=== PATIENT | female | born 1945 | race Caucasian/White ===

== ENCOUNTER 2016-09-28 16:28 | Emergency (ER) | payer MEDICARE, OTHER ==
[2014-10-01 09:37] VITALS: BMI 34.8
[~2016-09-28 16:28] MED LIST: ACIPHEX20 MG PO; ACTOS45 MG PO; CHLORASEPTIC177 ML MM; CLARITIN 10 MG10 MG PO; COLACE100 MG PO; COUMADIN5 MG PO; DEMEROL50 MG PO; DIABETA5 MG PO; GLUCOPHAGE1000 MG PO; INVOKANA300 MG PO; LANTUS INSULIN10 ML INJ; LISINOPRIL10 MG PO; MIRALAX17 GM PO; MOBIC7.5 MG PO; MS CONTIN30 MG PO; MULTIPLE VITAMI1 TA1 PO; PHENERGAN6.25 MG/5 PO; PREMARIN0.3 MG PO; PROZAC20 MG PO; SIMETHICON40 MG/0.6 PO; SINGULAIR10 MG PO; SYMBICORT INH; TAMIFLU75 MG PO; VITAMIN E1000 UNIT PO; ZANAFLEX4 MG PO; ZOCOR20 MG PO; ZOFRAN4 MG PO; [UNRECOGNIZED DRUG - OTHER] PO; [UNRECOGNIZED DRUG - OTHER] PO
[2016-09-28 17:36] LABS: BASOPHILS 0.2 % (0.0-2.0); HEMATOCRIT 40.6 % (36.0-48.0); HEMOGLOBIN 13.1 g/dL (12-16); IMMATURE GRANULOCYTES 0.2 % (0-5); LYMPHOCYTES 34.5 % (15-50); MCH 30.2 pg (26.0-34.0); MCHC 32.3 g/dL (31.0-37.0); MCV 93.5 fL (80.0-100.0); MEAN PLATELET VOLUME 11.5 fL (7.4-10.4); MONOCYTES 7.2 % (2-11); NEUTROPHILS 56.9 % (40-80); PLATELET COUNT 212 10x3/uL (130-400); RBC 4.34 10x6/uL (4.00-5.40); RDW 12.9 % (11.5-14.5)
[2016-09-28 17:50] LABS: ALBUMIN 3.6 g/dL (3.4-5.0); ANION GAP 12.7 mmol/L (8-16); BILIRUBIN - TOTAL 0.48 mg/dL (0.2-1.3); CALCIUM 9.4 mg/dL (8.5-10.1); CARBON DIOXIDE 27.3 mmol/L (21.0-32.0); CREATININE - SERUM 1.2 mg/dL (0.6-1.3); URIC ACID 4.5 mg/dL (2.6-7.2)
== END 2016-09-28 20:15 | disposition home or self-care (01) ==
LOC: D.ER 16:28
PROVIDERS: Emergency Medicine
DX: M79.674 Pain in right toe(s) (principal); Z86.73 Personal history of transient ischemic attack (TIA), and cerebral infarction without residual deficits; J45.909 Unspecified asthma, uncomplicated; E11.9 Type 2 diabetes mellitus without complications

== ENCOUNTER → 2016-11-04 18:41 | Outpatient (CLI) | payer MEDICARE, OTHER ==
[2014-10-01 09:37] VITALS: BMI 34.8
== END | disposition home or self-care (01) ==
LOC: D.MAMMO 10:30
DX: Z12.31 Encounter for screening mammogram for malignant neoplasm of breast (principal)

== ENCOUNTER 2017-01-17 16:01 | Emergency (ER) | payer MEDICARE, OTHER ==
[2014-10-01 09:37] VITALS: BMI 34.8
== END 2017-01-17 19:45 | disposition home or self-care (01) ==
LOC: D.ER 16:01
DX: S50.812A Abrasion of left forearm, initial encounter (principal); W01.0XXA Fall on same level from slipping, tripping and stumbling without subsequent striking against object, initial encounter; Y93.89 Activity, other specified; Y92.019 Unspecified place in single-family (private) house as the place of occurrence of the external cause; S70.01XA Contusion of right hip, initial encounter; S00.03XA Contusion of scalp, initial encounter; J45.909 Unspecified asthma, uncomplicated; Z86.73 Personal history of transient ischemic attack (TIA), and cerebral infarction without residual deficits; E11.9 Type 2 diabetes mellitus without complications

== ENCOUNTER 2017-04-23 05:09 | Day surgery (SDC) | payer MEDICARE, OTHER ==
[2017-04-22 10:44] LABS: HEMATOCRIT 40.9 % (36.0-48.0); MCH 31.3 pg (26.0-34.0); MCHC 34.2 g/dL (31.0-37.0); MCV 91.5 fL (80.0-100.0); MEAN PLATELET VOLUME 11.1 fL (7.4-10.4); RBC 4.47 10x6/uL (4.00-5.40); RDW 13.2 % (11.5-14.5); WBC 8.7 10x3/uL (4.8-10.8)
[2017-04-22 10:58] LABS: CALCIUM 9.1 mg/dL (8.5-10.1); CARBON DIOXIDE 22.7 mmol/L (21.0-32.0); CREATININE - SERUM 1.1 mg/dL (0.6-1.3); POTASSIUM - SERUM 4.7 mmol/L (3.5-5.1)
[~2017-04-23] VITALS: Ht 168.9 cm; Wt 106.8 kg
--- NOTE | ~2017-04-23 | OP ---
PATIENT NAME: KARYN PUENTES MEDICAL RECORD: [id number] :43 LOCATION:D.OPS ADMISSION DATE: SURGEON: CARLIN FRANCO DPM DATE OF OPERATION: 04/23/2017 PREOPERATIVE DIAGNOSES: 1. Arthritis, right hallux interphalangeal joint. 2. Hammertoe deformities, right 2, 3, 4 and 5. POSTOPERATIVE DIAGNOSES: 1. Arthritis, right hallux interphalangeal joint. 2. Hammertoe deformities, right 2, 3, 4 and 5. PROCEDURES: 1. Right hallux IPJ fusion. 2. Right second digit flexor tenotomy. 3. Right third digit flexor tenotomy. 4. Right fourth digit flexor tenotomy. 5. Right fifth arthroplasty. ANESTHESIA: Local with IV sedation utilizing lidocaine and Marcaine plain around the first through fifth digits, approximately 15 cc total were used. HEMOSTASIS: Right thigh tourniquet at 350 mmHg. PREOPERATIVE DETAILS: The patient was taken to the OR, placed on the operating table in supine position. This was followed by induction of general anesthesia and infiltration of local anesthetic. The right extremity was then prepped and draped in usual aseptic technique followed by exsanguination and inflation of tourniquet. PROCEDURE NUMBER ONE: Right hallux IPJ fusion. A 15-blade was used to create a transverse incision overlying the dorsal IPJ. The incision was deepened down through subcutaneous tissue. The extensor longus tendon was transected in a transverse fashion exposing the IPJ. The IPJ was freed and a sagittal saw was used to resect the joint. The joint was then temporarily fixated with K-wire running from distal hallux proximal to the subchondral bone of the proximal phalanx. At this time, overdrill was used. A headless screw was then placed across the fusion site noting excellent compression. C-arm was used to verify good placement of the screw. The wound was flushed. The temporary K-wire was removed. The distal incision was closed in a simple interrupted technique with 4-0 Rapide. The dorsal incision was closed with 4-0 Rapide in a subcuticular technique. PROCEDURE NUMBER TWO: Flexor tenotomy, right second digit. A 15-blade was used to create a small stab incision in the base of the plantar aspect of the second digit, right foot. The incision was deepened down to the flexor tendon, which was incised, noting excellent reduction of the contracture of the tendon. The wound was flushed and closed with Steri-Strips. PROCEDURE NUMBER THREE: Procedure was performed as described in number 2 without variation and no complication. PROCEDURE NUMBER FOUR: Flexor tenotomy, right fourth digit. Procedure was performed as described in number 2 without variation and no complication. OPERATIVE REPORT [id number] KARYN PUENTES PROCEDURE NUMBER FIVE: Right fifth digit arthroplasty. A 15-blade was used to create a 1.5 cm linear incision over dorsal aspect of the PIPJ of the right 5th digit. The incision was deepened down through subcutaneous tissue to the extensor longus tendon, which was transected in a transverse fashion. The head of the proximal phalanx was then exposed and delivered. Sagittal saw was used to resect the head of the proximal phalanx. The wound was flushed. Extensor longus tendon was repaired with 4-0 Rapide. The subcutaneous tissue was reapproximated with 4-0 Rapide and the skin was closed with 4-0 Rapide in a subcuticular technique. Adaptic, 4 x 4 and Conform were used to dress all wounds followed by a modified Gutierrez compression dressing. Tourniquet was deflated. POSTOPERATIVE DETAILS: The patient tolerated the procedure well and left the OR with vital signs stable and vascular status at preoperative levels. The patient was transported to recovery per anesthesia in stable condition. TRANSINT:[id number] Voice Confirmation ID: [id number] DOCUMENT ID: [id number] CARLIN FRANCO DPM CC: [id number] DICTATION DATE: 04/23/17818 JBOSS DEVELOPER: 04/23/17 1251 [facility] 04/23/17 [place] [id number] [place] [id number]
[~2017-04-23 05:09] MED LIST changes: +ARICEPT10 MG PO; +CO Q-10200 MG PO; +FISH OIL 1,2001 CAP PO; +GLUCOTROL 5 MG T5 MG PO; +JARDIANCE10 MG PO; +LIPITOR40 MG PO; -LISINOPRIL10 MG PO; +NEURONTIN 300300 MG PO; +NORVASC5 MG PO; +OMEPRAZOLE40 MG PO; +OXYBUTYNIN CHLOR5 MG PO; +PRINIVIL20 MG PO; +REQUIP1 MG PO; +VITAMIN B COMPL1 TAB PO; +VITAMIN D31000 UNIT PO; -VITAMIN E1000 UNIT PO; +VITAMIN E400 UNI2 PO
[2017-04-23 06:19] VITALS: BP 146/62; Ht 168.9 cm; Wt 106.8 kg
== END 2017-04-23 10:50 | disposition home or self-care (01) ==
LOC: D.OPS 05:09 → D.PAN 07:00 → D.OPS 10:50
PROVIDERS: Anesthesiology
DX: M13.871 Other specified arthritis, right ankle and foot (principal); M20.41 Other hammer toe(s) (acquired), right foot; Z01.812 Encounter for preprocedural laboratory examination

== ENCOUNTER 2017-08-24 21:40 | Emergency (ER) | payer MEDICARE, OTHER ==
[2017-04-23 06:19] VITALS: BMI 37.4
== END 2017-08-24 23:15 | disposition home or self-care (01) ==
LOC: D.ER 21:40
DX: S63.501A Unspecified sprain of right wrist, initial encounter (principal); W01.0XXA Fall on same level from slipping, tripping and stumbling without subsequent striking against object, initial encounter; Y93.89 Activity, other specified; Y92.019 Unspecified place in single-family (private) house as the place of occurrence of the external cause

== ENCOUNTER 2017-08-30 09:22 | Emergency (ER) | payer MEDICARE, OTHER ==
[2017-04-23 06:19] VITALS: BMI 37.4
[2017-08-30 10:30] LABS: ALBUMIN 3.5 g/dL (3.4-5.0); ALKALINE PHOSPHATASE 106 U/L (46-116); ALT (SGPT) 36 U/L (10-68); BILIRUBIN - TOTAL 0.57 mg/dL (0.2-1.3); CALC OSMOLALITY 285 mosm/kg (275-300); CALCIUM 9.4 mg/dL (8.5-10.1); CARBON DIOXIDE 25.3 mmol/L (21.0-32.0); CHLORIDE - SERUM 104 mmol/L (98-107); CREATININE - SERUM 1.2 mg/dL (0.6-1.3); GLUCOSE 144 mg/dL (74-106); POTASSIUM - SERUM 4.1 mmol/L (3.5-5.1); PROTEIN - SERUM 6.9 g/dL (6.4-8.2); SODIUM 139 mmol/L (136-145); UREA NITROGEN 26 mg/dL (7-18); eGFR NON AFRICAN AMERICAN 47 mL/min (90-120)
[2017-08-30 10:34] LABS: CREATINE KINASE 68 UL (21-215); MAGNESIUM - SERUM 1.6 mg/dL (1.8-2.4)
[2017-08-30 10:35] LABS: TROPONIN-I < 0.017 ng/mL (0.000-0.060)
[2017-08-30 10:40] LABS: BASOPHILS 0.4 % (0-2); EOSINOPHILS 2.5 % (0-7); HEMATOCRIT 39.3 % (36.0-48.0); HEMOGLOBIN 13.2 g/dL (12-16); IMMATURE GRANULOCYTES 0.3 % (0-5); LYMPHOCYTES 27.3 % (15-50); MCH 31.3 pg (26.0-34.0); MCHC 33.6 g/dL (31.0-37.0); MCV 93.1 fL (80.0-100.0); MEAN PLATELET VOLUME 11.4 fL (7.4-10.4); MONOCYTES 7.8 % (2-11); NEUTROPHILS 61.7 % (40-80); PLATELET COUNT 225 10x3/uL (130-400); RBC 4.22 10x6/uL (4.00-5.40); RDW 13.2 % (11.5-14.5); WBC 9.7 10x3/uL (4.8-10.8)
== END 2017-08-30 13:03 | disposition home or self-care (01) ==
LOC: D.ER 09:22
PROVIDERS: Emergency Medicine
DX: J20.9 Acute bronchitis, unspecified (principal); J01.90 Acute sinusitis, unspecified

== ENCOUNTER 2017-11-11 12:10 | Outpatient (CLI) | payer MEDICARE, OTHER ==
[2017-04-23 06:19] VITALS: BMI 37.4
--- NOTE | ~2017-11-11 | OP ---
PATIENT NAME: KARYN PUENTES MEDICAL RECORD: [id number] :43 LOCATION:D.CAT ADMISSION DATE: SURGEON: GONZALO VEGAS MD DATE OF OPERATION: 11/11/2017 PROCEDURES: 1. Left heart catheterization. 2. Selective coronary angiography. 3. Left ventriculogram. 4. Intravascular ultrasound. INDICATION: Angina and coronary artery disease. PROCEDURE IN DETAIL: After informed consent was obtained and after detailed explanation of risks, benefits as well as alternative therapies, the patient elected to proceed with angiogram and heart catheterization. The right femoral area was prepped and draped in normal sterile fashion. Right femoral artery was cannulated via modified Seldinger technique with placement of 5-Tajik sheath. All catheters exchanged through this sheath. FINDINGS: The left ventriculogram was performed in standard 30-degree PEREZ view, reveals good cardiac wall motion throughout all segments. Overall ejection fraction estimated at 60%. SELECTIVE CORONARY ANGIOGRAPHY: 1. Left main is with no significant angiographic disease. 2. Left anterior descending has mild to moderate irregularities, but intravascular ultrasound reveals nothing greater than 50% to 60%. 3. The left circumflex has moderate irregularities, but no flow-limiting stenosis. 4. The right coronary has moderate irregularities, but no flow-limiting stenosis. OVERALL IMPRESSION: Chest pain, no hemodynamically significant coronary artery disease. Chest pain is noncardiac in etiology. TRANSINT:[id number] Voice Confirmation ID: [id number] DOCUMENT ID: [id number] GONZALO VEGAS MD at 1202 CC: [id number] DICTATION DATE: 11/11/17 1643 DOCTOR OF DENTAL SURGERY: 11/11/17 1755 DEP CLI 11/11/17 [facility] [address] [place] [address]
--- NOTE | ~2017-11-11 | CN ---
PATIENT NAME:KARYN PUENTES MEDICAL RECORD: [id number] : 41 LOCATION:D.JEANNINE ADMIT DATE: ACCOUNT: [id number] CONSULTING PHYSICIAN: GONZALO VEGAS MD REFERRING PHYSICIAN: NICKOLAS BAR MD DATE OF CONSULTATION: 11/11/2017 Cardiology Consultation ADMITTING DIAGNOSES: 1. Chest pain compatible with angina. 2. Hypertension. 3. Hyperlipidemia. 4. Gastroesophageal reflux disease. 5. Diabetes. HISTORY OF PRESENT ILLNESS: This is a 71-year-old female with no previous cardiac history who presents with 2 days of increasing episodes of chest pain, chest discomfort compatible with angina. She has a history of GERD she has developed on her Prilosec and she continues to have the episodes of chest discomfort, it was associated with nausea and vomiting earlier today. Her EKG is with no changes. She continues to have the episodes of chest pain. Her troponin is normal. REVIEW OF SYSTEMS: The patient reports easy bruising but reports no swollen glands. The patient reports no fever, no night sweats, no significant weight gain, no significant weight loss. No significant exercise tolerance. The patient reports no dry eyes, no irritation, no vision change. Patient reports no difficulty hearing and no ear pain. Patient reports no frequent nose bleeds or nose and sinus problems. Patient reports on arm pain on exertion. No shortness of breath while lying down. No history of heart murmur. Patient reports no cough, no wheezing or coughing up blood. Patient reports no abdominal pain, no vomiting. Normal appetite. No diarrhea and not vomiting blood. No nausea and no constipation. Patient reports no incontinence. No difficulty urinating. No hematuria. No increased frequency. Patient reports no muscle aches. No weakness, no arthralgias, no back pain. No swelling of the extremities. Patient reports no abnormal mole, no jaundice, no rashes. Reports no loss of consciousness. No weakness and no numbness. No seizures, dizziness, or headaches. The patient reports no depression, no sleep disturbance, feeling safe in a relationship and no alcohol abuse. Patient reports on fatigue. Reports no runny nose or sinus pressure. No itching, no hives, and no frequent sneezing. PHYSICAL EXAMINATION: GENERAL APPEARANCE: Well-nourished, well-developed, appears stated age. Level of distress, comfortable. PSYCHIATRIC: Mental status, alert, normal affect. Orientation, oriented to time, place and person. EYES: Lids and conjunctiva, noninjected. No discharge, no pallor. ENT: Lips, teeth, gums, normal dentition. Oropharynx, no cyanosis, no pallor. NECK: Carotid arteries, bilateral normal upstroke, no bruits, no thrills. JUGULAR VEINS: No jugular venous pressure or distention. CERVICAL LYMPH NODES: Nontender, nonenlarged. THYROID: Not enlarged. Nontender. No nodules. LUNGS: Respiratory effort, unlabored. CONSULT REPORT [id number] DHAVALKARYN CHEST: Normal curvature. No thoracic deformity. No chest wall tenderness. Percussion, resonant. Auscultation, clear. No wheezes, no rales, no rhonchi. CARDIOVASCULAR: Precordial exam, nondisplaced. No heaves or pericardial thrills. Rate and rhythm, regular. Heart sounds, normal S1, normal S2. No S3, no gallop, no rub. Systolic murmur, not heard. Diastolic murmur, not heard. EXTREMITIES: No cyanosis, no edema. Peripheral pulses, full and equal in all extremities, except as noted. No bruits appreciated. ABDOMEN: Soft, nondistended. Normal aorta. No bruit. Nontender. No masses. Liver, nontender, no hepatomegaly. Spleen, nontender, no splenomegaly. MUSCULOSKELETAL: No joint tenderness. No joint swelling. No erythema. NEUROLOGICAL: Normal gait, normal strength, normal tone. SKIN: Warm and dry. OVERALL IMPRESSION: Chest pain in a continued fashion, very well may be anginal in etiology. We will proceed with coronary angiography due to the continued pain. Further care depends upon the findings of the angiography. TRANSINT:[id number] Voice Confirmation ID: [id number] DOCUMENT ID: [id number] GONZALO VEGAS MD at 1202 CC: [id number] DICTATION DATE: 11/11/17 1641 [employer] REPAIRER: 11/11/17 1730 DEP CLI 11/11/17 [facility] [address] [place] [address]
--- NOTE | ~2017-11-11 | HEMODYNAMI ---
PATIENT:KARYN PUENTES MEDICAL RECORD: [id number] : 43 LOCATION:DYULIA ADMISSION DATE: 11/11/17 Generatedon:11/11/201716:42 Patient name: KARYN PUENTES Patient #: [id number] SSN: : 1945 Date of study: 11/11/2017 Page: Of Hemodynamic Procedure Report Patient Data Patient Demographics Procedure consent was obtained First Name: KARYN Gender: Female Last Name: DHAVAL : 1945 [facility] Initial: DELFINO Age: 71 year(s) Patient #: [id number] Race: Unknown Additional ID: [id number] Contact details Address: [place] [address] State: [place] City: [place] Zip code: [address] Admission Admission Data Admission Date: 11/11/2017 Admission Time: 12:10 Arrival Date: 11/11/2017 Arrival Time: 12:10 Admit Source: Emergency Insurance Payor: Medicare department Lab Results Lab Result Date: 11/11/2017 Lab Result Time: 0:00 Biochemistry Name Units Result Min Max BUN mg/dl 28 --(----)-* 7 18 Creatinine mg/dl 1.1 --(--*-)-- 0.6 1.3 CBC Name Units Result Min Max Hemoglobin g/dl 13.9 --(*---)-- 13.5 17.5 Procedure Procedure Types Cath Procedure Diagnostic Procedure [facility] w/Coronaries FFR/IVUS Intra-Coronary IVUS Initial Sedation Charges Procedure Description Procedure Date Procedure Date: 11/11/2017 Procedure Start Time: 16:26 Procedure End Time: 16:38 Procedure Staff Name Function King Burgos MD Performing Physician Yaima Alejandor RT Monitor Frantz Herron RN Nurse Natasha Morales RT Scrub Procedure Data Cath Procedure Fluoroscopy Diagnostic fluoroscopy Total fluoroscopy Time: 2 time: 2 min min Diagnostic fluoroscopy Total fluoroscopy dose: 429 dose: 429 mGy mGy Contrast Material Contrast Material Type Amount (ml) Isovue 300 54 Entry Location Entry Primary Successful Side Size Upsize Upsize Entry Closure Succes sful Closure Location (Fr) 1 (Fr) 2 (Fr) Remarks Device Remarks Femoral Right 5 Fr 6 Fr Exoseal artery Short Estimated blood loss: 5 ml Diagnostic catheters Device Type Used For End Catheter Placement MULTIPACK Pigtail 5 Fr LV Angiography catheter MULTIPACK JL 4.0 5Fr Left Coronary catheter Angiography MULTIPACK 3DRC 5Fr Right Coronary catheter Angiography Procedure Complications No complications Procedure Medications Medication Administration Route Dosage Oxygen NC 2 l/min 0.9% NaCl I.V. 100 ml/hr Heparin Flush Bag added to field 2 bags (1000units/500ml NS) Fentanyl I.V. 50 mcg Fentanyl I.V. 50 mcg Fentanyl I.V. 50 mcg Fentanyl I.V. 50 mcg Hemodynamics Rest HGB: 13.9 (g/dl) Heart Rate: 70 (bpm) Pressure Samples Time Site Value (mmHg) Purpose Heart Use Rate(bpm) 16:27 LV 114/6,8 Snapshot 85 Snapshots Pre Cath Intra NCS Post Cath Vital Signs Time Heart Resp SPO2 etCO2 NIBP (mmHg) Rhythm Pain Sedation Rate (ipm) (%) (mmHg) Status Level (bpm) 16:09:08 71 16 96 0 149/74(123) NSR 0 (11) 10(A) , No pain 16:13:30 69 16 93 0 151/69(105) NSR 0 (11) 10(A) , No pain 16:17:48 73 16 98 0 151/69(116) NSR 0 (11) 10(A) , No pain 16:22:16 76 16 98 0 156/70(122) NSR 0 (11) 10(A) , No pain 16:26:38 98 16 98 0 148/70(120) NSR 0 (11) 10(A) , No pain 16:31:54 95 15 98 0 184/83(129) NSR 0 (11) 10(A) , No pain 16:41:54 93 19 98 0 161/86(118) NSR 0 (11) 10(A) , No pain Medications Time Medication Route Dose Verified Delivered Reason Notes Effec tiveness by by 16:16:30 Oxygen NC 2 King Landry Per l/min Aubrey Herron RN physician 16:16:39 0.9% NaCl I.V. 100 King Landry Per ml/hr Aubrey Herron RN physician 16:16:49 Heparin Flush added 2 King Landry used for Bag to bags Aubrey Herron RN procedure (1000units/500ml field NS) 16:24:26 Fentanyl I.V. 50 King Landry for oneida Herron RN sedation 16:25:46 Fentanyl I.V. 50 King Landry for oneida Herron RN sedation 16:27:04 Fentanyl I.V. 50 King Landry for oneida Herron RN sedation 16:31:30 Fentanyl I.V. 50 King Landry for oneida Herron RN sedation Procedure Log Time Note 15:49:10 Frantz Herron RN sent for patient. Start room use. 15:49:11 Time tracking: Regular hours 15:49:16 Plan of Care:Hemodynamics will remain stable., Cardiac rhythm will remain stable., Comfort level will be maintained., Respiratory function will remain adequate., Patient/ family verbilizes understanding of procedure., Procedure tolerated without complication., Recovers from procedure without complications.. 15:49:52 Diagnostic Cath Status : Emergency 15:49:58 Admit Source: Emergency department 15:50:07 Arrival Date: 11/11/2017 12:10:00 PM 15:50:20 Insurance Payor : Medicare 15:50:37 Lab Result : Hemoglobin 13.9 g/dl 15:50:37 Lab Result : Creatinine 1.1 mg/dl 15:50:37 Lab Result : BUN 28 mg/dl 16:02:11 Patient received from ED to CCL 2 Alert and oriented. Tansferred to table in Supine position. 16:02:12 Warm blankets applied, and ck hugger turned on for patient comfort. 16:02:12 Correct patient and procedure confirmed by team. 16:02:14 Signed procedure consent form obtained from patient. 16:02:15 ECG and BP/O2 sat monitors applied to patient. 16:02:15 Full Disclosure recording started 16:07:55 Vital chart was started 16:11:36 Baseline sample Acquired. 16:11:43 Rhythm: sinus rhythm 16:11:49 H&P Date Dictated: 11/11/2017 New H&P dictated by physician.. 16:11:50 Pre-procedure instructions explained to patient. 16:11:51 Pre-op teaching completed and patient verbalized understanding. 16:11:53 Family in waiting room. 16:11:54 Patient NPO since Midnight. 16:11:58 Is the patient allergic to Iodine/contrast media? No. 16:11:59 Was the patient premedicated? No 16:12:01 Is patient on blood thinner?Yes 16:12:05 ACC The patient was administered the following blood thiners within the last 24 hours: ACCPlavix 16:12:08 Patient diabetic? Yes. 16:12:09 If diabetic: On Metformin? Yes 16:12:12 If on Metformin: Last Dose? 11/11/2017 16:12:15 Previous problem with sedation/anesthesia? No ? 16:12:16 Snore? Yes 16:12:17 Sleep apnea? No 16:12:18 Deviated septum? No 16:12:19 Opens mouth fully? Yes 16:12:19 Sticks out tongue? Yes 16:12:21 Airway obstruction? No ? 16:12:29 Dentures? No ? 16:12:32 Pre procedure: right dorsailis pedis pulse 1+ Palpable, but thready & weak; easily obliterated 16:12:37 Pre procedure: left dorsailis pedis pulse 1+ Palpable, but thready & weak; easily obliterated 16:12:38 Patient pain scale 0/10 ?. 16:12:48 IV patent on arrival in right wrist with 0.9% NaCl at [facility]. 16:12:50 Lab results completed and on chart. 16:12:54 Right groin area was prepped with chlora-prep and draped in sterile fashion 16:12:55 Alarms reviewed by R. N. 16:12:55 Sharps counted by scrub and verified by R.N. 16:15:30 Physician paged 16:16:30 Oxygen 2 l/min NC was administered by Frantz Herron RN; Per physician; 16:16:39 0.9% NaCl 100 ml/hr I.V. was administered by Frantz Herron RN; Per physician; 16:16:49 Heparin Flush Bag (1000units/500ml NS) 2 bags added to field was administered by Frantz Herron RN; used for procedure; 16:23:53 Physician arrived 16:23:53 --------ALL STOP TIME OUT------ 16:23:54 Final Timeout: patient, procedure, and site verified with staff and physician. All members of the team are in agreement. 16:23:57 Right groin site verified by team. 16:24:00 Physical assessment completed. ASA score P 2 - A patient with mild systemic disease as per King Burgos MD. 16:24:04 Sedation plan: IV Moderate Sedation Medication:Versed, Fentanyl 16:24:26 Fentanyl 50 mcg I.V. was administered by Frantz Herron RN; for sedation; 16:24:51 Use device set Femoral Dx 16:24:52 ACIST Syringe (56601) opened to sterile field. 16:24:52 Bag Decanter (2002S) opened to sterile field. 16:24:53 Medline Cath Pack ([id number]) opened to sterile field. 16:24:53 SHEATH 5FR Beatty (ULK287) opened to sterile field. 16:24:54 DIAGNOSTIC WIRE .035 260cm J wire (614450) opened to sterile field. 16:24:55 ACIST Hand Control (31156) opened to sterile field. 16:24:56 ACIST Manifold (17217) opened to sterile field. 16:24:56 DIAGNOSTIC Multipack 5Fr catheter set (KK9871) opened to sterile field. 16:25:46 Fentanyl 50 mcg I.V. was administered by Frantz Herron RN; for sedation; 16:26:20 Procedure started. 16:26:23 Local anesthetic to right femoral artery with Lidocaine 2% by King Burgos MD.INITIAL ACCESS ONLY 16:26:33 A 5 Fr sheath was inserted into the Right Femoral artery 16:27:04 Fentanyl 50 mcg I.V. was administered by Frantz Herron RN; for sedation; 16:27:05 A MULTIPACK Pigtail 5 Fr catheter was advanced over the wire and used for LV Angiography. 16:27:41 LV hemodynamics recorded. 16:27:42 LV gram done using PEREZ 16:27:45 Injector settings: Ml/sec: 5, Volume: 15, 16:27:50 EF : 60 % 16:27:55 Catheter removed. 16:27:59 A MULTIPACK JL 4.0 5Fr catheter was advanced over the wire and used for Left Coronary Angiography. 16:28:44 LCA angiography performed. 16:28:47 Injector settings: Ml/sec: 3, Volume: 6, 16:29:37 Catheter removed. 16:29:43 A MULTIPACK 3DRC 5Fr catheter was advanced over the wire and used for Right Coronary Angiography. 16:29:51 RCA angiography performed. 16:29:54 Injector settings: Ml/sec: 3, Volume: 6, 16:30:05 Catheter removed. 16:31:06 SHEATH 6FR Beatty (ASD497) opened to sterile field. 16:31:06 INFLATOR Merit BasixCompak (SC6536) opened to sterile field. 16:31:07 CHOICE PT Extra Support 182cm wire ([id number]) opened to sterile field. 16:31:08 Noxen [place] Eagleye IVUS Catheter (75677L) opened to sterile field. 16:31:28 Proceeding to intervention. 16:31:30 Fentanyl 50 mcg I.V. was administered by Frantz Herron RN; for sedation; 16:31:35 Sheath upsized to a 6 Fr Short. 16:31:59 GUIDE 6FR XBLAD 3.5 catheter ([id number]) opened to sterile field. 16:32:04 6 Fr xblad 3.5 guide catheter was inserted over the wire 16:32:11 choice pt wire advanced. 16:32:19 IVUS catheter advanced over wire. 16:35:56 IVUS pass to LAD lesion performed. 16:35:58 IVUS catheter removed over wire. 16:36:50 Wire removed. 16:36:51 Guide catheter removed. 16:37:06 EXOSEAL 5Fr (EX500) opened to sterile field. 16:37:23 Sheath removed intact; hemostasis achieved with Exoseal to the Right Femoral artery. 16:37:24 Procedure ended.(Physican Out) 16:37:34 Fluoroscopy time 02.00 minutes. 16:37:39 Fluoroscopy dose: 429 mGy 16:37:39 Flurop Dose total: 429 16:38:00 Contrast amount:Isovue 300 54ml. 16:38:02 Sharps counted by scrub and verified by R.N. 16:38:05 Insertion/operative site no bleeding no hematoma. 16:38:08 Post-op/insertion site Right Femoral artery dressed using a 4 x 4 and Tegaderm. 16:38:11 Post right femoral artery:stable 16:38:14 Post procedure rhythm: unchanged. 16:38:17 Estimated blood loss: 5 ml 16:38:18 Post procedure instruction explained to patient.Patient verbalizes understanding. 16:38:18 Patient needs reinforcement of post procedure teaching. 16:38:31 Procedure type changed to Cath procedure, Diagnostic procedure, LHC, LHC w/Coronaries, FFR/IVUS, Intra-Coronary IVUS Initial, Sedation Charges 16:38:32 Procedure and supply charges have been captured, reviewed, submitted and are correct. 16:38:36 Procedure Complication : No complications 16:38:39 Vital chart was stopped 16:38:39 See physician's report for complete and final results. 16:38:42 Report given to Pre/Post Procedure Room. 16:38:45 Patient transfered to Pre/Post Procedure Room with Stretcher. 16:38:46 Procedure ended. 16:38:46 Full Disclosure recording stopped 16:38:49 End room use (Document Last) Device Usage Item Name Manufacture Quantity Catalog Number Hospital Part Current Minim al Lot# / Charge Number Stock Stock Serial# Code ACIST Acist 1 66079 417662 [id number] [id number] 20 Syringe Medical (07881) Systems Inc Bag Microtek 1 2001S 676832 48234 274088 5 Decanter Medical Inc. () Medline Cardinal 1 [id number] 270681 01433 270716 5 Cath Pack Health ([id number]) SHEATH 5FR Terumo 1 KBA179 781360 029646 618760 40 Beatty (ZAW017) DIAGNOSTIC St Salvatore 1 054143 990310 998838 968925 30 WIRE .035 260cm J wire (084676) ACIST Hand Acist 1 89896 067567 555751 997179 5 Control Medical (53199) Systems Inc ACIST Acist 1 13088 960576 274848 105593 5 Manifold Medical (54714) Systems Inc DIAGNOSTIC Cardinal 1 [id number] 178450 20429 707271 30 Multipack Health 5Fr catheter set (AW0625) MULTIPACK Cardinal 1 175733 5 Pigtail 5 Health Fr catheter MULTIPACK Cardinal 1 120705 5 JL 4.0 5Fr Health catheter MULTIPACK Cardinal 1 792723 5 3DRC 5Fr Health catheter SHEATH 6FR Terumo 1 GBV207 424345 316815 005223 40 Beatty (GRT869) INFLATOR Merit 1 IH8746 706396 757820 348255 15 [facility] Medical BasixCompak (EL6246) CHOICE PT Griffin 1 [id number] 421402 990512 103032 5 Extra Scientific Support 182cm wire ([id number]) Noxen Noxen 1 [id number] 064939 307287 855536 8 [place] Eagleye IVUS Catheter (06067O) GUIDE 6FR Cardinal 1 [id number] 765312 067519 722562 10 XBLAD 3.5 Health catheter ([id number]) EXOSEAL 5Fr Cardinal 1 EX500 727513 048079 809922 10 (EX500) Health Signature Audit [place] Stage Time Signature Unsigned Intra-Procedure 11/11/2017 Yaima Alejandro 4:42:21 PM RT(R) Signatures Monitor : Yaima Alejandro RT Signature : Date : Time : [facility] [address] [facility] [place] [address]
[2017-11-11 12:30] LABS: BASOPHILS 0.2 % (0-2); EOSINOPHILS 0.4 % (0-7); HEMATOCRIT 40.5 % (36.0-48.0); HEMOGLOBIN 13.9 g/dL (12-16); IMMATURE GRANULOCYTES 0.2 % (0-5); LYMPHOCYTES 34.9 % (15-50); MCH 30.8 pg (26.0-34.0); MCHC 34.3 g/dL (31.0-37.0); MCV 89.8 fL (80.0-100.0); MEAN PLATELET VOLUME 11.1 fL (7.4-10.4); MONOCYTES 5.6 % (2-11); NEUTROPHILS 58.7 % (40-80); PLATELET COUNT 260 10x3/uL (130-400); RBC 4.51 10x6/uL (4.00-5.40); RDW 12.8 % (11.5-14.5); WBC 11.1 10x3/uL (4.8-10.8)
[2017-11-11 12:48] LABS: ALBUMIN 3.8 g/dL (3.4-5.0); ALKALINE PHOSPHATASE 92 U/L (46-116); ALT (SGPT) 34 U/L (10-68); BILIRUBIN - TOTAL 1.03 mg/dL (0.2-1.3); CALC OSMOLALITY 277 mosm/kg (275-300); CALCIUM 10.1 mg/dL (8.5-10.1); CARBON DIOXIDE 22.7 mmol/L (21.0-32.0); CHLORIDE - SERUM 100 mmol/L (98-107); CREATININE - SERUM 1.1 mg/dL (0.6-1.3); GLUCOSE 139 mg/dL (74-106); POTASSIUM - SERUM 4.4 mmol/L (3.5-5.1); PROTEIN - SERUM 7.4 g/dL (6.4-8.2); SODIUM 135 mmol/L (136-145); UREA NITROGEN 28 mg/dL (7-18); eGFR NON AFRICAN AMERICAN 51 mL/min (90-120)
[2017-11-11 12:59] LABS: CHOL - HDL RATIO 2.4 ratio (2.3-4.1); CHOLESTEROL, TOTAL 105 mg/dL (0-200); CKMB 1.8 U/L (0.0-3.6); CREATINE KINASE 75 UL (21-215); HDL CHOLESTEROL 43 mg/dL (32-96); LDL CHOLESTEROL 43 mg/dL (0-100); TRIGLYCERIDE 97 mg/dL (30-200)
[2017-11-11 13:00] LABS: TROPONIN-I < 0.017 ng/mL (0.000-0.060)
== END 2017-11-11 18:30 | disposition home or self-care (01) ==
LOC: D.ER 12:10 → D.CATH 12:10 → EDSTATUS 13:00 → D.CATH 18:30
PROVIDERS: Emergency Medicine
DX: I25.119 Atherosclerotic heart disease of native coronary artery with unspecified angina pectoris (principal); I10 Essential (primary) hypertension; E78.5 Hyperlipidemia, unspecified; E11.9 Type 2 diabetes mellitus without complications; K21.9 Gastro-esophageal reflux disease without esophagitis; Z01.812 Encounter for preprocedural laboratory examination

== ENCOUNTER 2018-07-06 20:12 | Inpatient (IN) | payer MEDICARE, OTHER ==
[~2018-07-06] VITALS: Ht 168.9 cm; Wt 90.7 kg
--- NOTE | ~2018-07-06 | MORECARE ---
CASE MANAGEMENT DISCHARGE SUMMARY PATIENT: KARYN PUENTES UNIT: [id number] ADM DATE: 07/06/18 AGE: 72 : 41 SEX: F ROOM/BED: D.2220 AUTHOR: PURNIMADOC PHYSICIAN: REFERRING PHYSICIAN: GEORGIE MICHELLE MD DATE OF SERVICE: 07/07/18 Discharge Plan Patient Name: KARYN PUENTES Facility: [facility]:[place] : 1945 Planned Disposition: Home Anticipated Discharge Date: Discharge Date: Expected LOS: Initial Reviewer: [email or web address] Initial Review Date: 07/07/2018 Generated: 07/07/18 5:02 pm Comments DCP- Discharge Planning Updated by [email or web address]: Amarilys Jackson on 07/07/18 2:[address] Patient Name: KARYN PUENTES Admission Status: ER Accout number: [id number] Admission Date: 07-06-2018 : 1945 Admission Diagnosis: Attending: EGORGIE MICHELLE Current LOS: 1 Anticipated DC Date: Planned Disposition: Home Primary Insurance: MEDICARE A & B Discharge Planning Comments: CM met with patient to assess discharge planning needs. Patient stated that she is independent with her care at home and plans to return there at discharge. She stated that her will be the one to take her home. She has a glucometer and a walker at home .She does not use any HH services and does not think she will need it when she is discharged. CM will continue to follow and assist with dc planning. Luggage Attendant: Amarilys Jackson DCPIA - Discharge Planning Initial Assessment Updated by [email or web address]: Amarilys Jackson on 07/07/18 3:53 pm * Is the patient Alert and Oriented? Yes * How many steps to enter\exit or inside your home? * PCP [facility] * [facility]acy [facility] [address] * Preadmission Environment Home with Family * ADLs Independent * Equipment Glucometer Rolling Walker * List name and contact numbers for known caregivers / representatives who currently or will assist patient after discharge: DIPAK () [phone] * Verbal permission to speak to the caregivers and representatives has been obtained from the patient. Yes * Community resources currently utilized None * Additional services required to return to the preadmission environment? No * Can the patient safely return to the preadmission environment? Yes * Has this patient been hospitalized within the prior 30 days at any hospital? No Last DP export: 07/07/18 2:53 p Patient Name: KARYN PUENTES Page 52815 at 1603 All edits/amendments must be made on the electronic document DICTATION DATE: 07/07/181601 PATTERN GRADER CUTTER: YORDAN 07/07/181601 RPT#: [id number] DC DATE: STATUS: ADM IN [facility] [address] [place] [address] END OF REPORT
--- NOTE | ~2018-07-06 | MORECARE ---
CASE MANAGEMENT DISCHARGE SUMMARY PATIENT: KARNY PUENTES UNIT: [id number] ADM DATE: 07/07/18 AGE: 72 : 43 SEX: F ROOM/BED: D.2220 AUTHOR: VAMSHI FELTON PHYSICIAN: REFERRING PHYSICIAN: GEORGIE MICHELLE MD DATE OF SERVICE: 07/10/18 Discharge Plan Patient Name: KARYN PUENTES Facility: [facility]:[place] : 1945 Planned Disposition: Home Anticipated Discharge Date: Discharge Date: Expected LOS: Initial Reviewer: [email or web address] Initial Review Date: 07/07/2018 Generated: 07/10/18 2:46 pm Comments DCP- Discharge Planning Updated by [email or web address]: Amarilys Jackson on 07/10/18 12:[address] Patient Name: KARYN PUENTES Encounter No: [id number] : 1945 Primary Insurance: MEDICARE A & B Anticipated DC Date: Planned Disposition: Home External Planned Provider: : DCP follow-up note: Patient and family in agreement with discharge plan. IMM served and explained. No changes to plan. Case management will follow and assist as needed. Amarilys Jackson DCP- Discharge Planning Updated by [email or web address]: Amarilys Jackson on 07/07/18 2:[address] Patient Name: KARYN PUENTES Admission Status: ER Accout number: [id number] Admission Date: 07-06-2018 : 1945 Admission Diagnosis: Attending: GEORGIE MICHELLE Current LOS: 1 Anticipated DC Date: Planned Disposition: Home Primary Insurance: MEDICARE A & B Discharge Planning Comments: CM met with patient to assess discharge planning needs. Patient stated that she is independent with her care at home and plans to return there at discharge. She stated that her will be the one to take her home. She has a glucometer and a walker at home .She does not use any HH services and does not think she will need it when she is discharged. CM will continue to follow and assist with dc planning. Induction Furnace Operator: Amarilys Jackson DCPIA - Discharge Planning Initial Assessment Updated by [email or web address]: Amarilys Jackson on 07/07/18 3:53 pm * Is the patient Alert and Oriented? Yes * How many steps to enter\exit or inside your home? * PCP [facility] * [facility]acy [facility] [address] * Preadmission Environment Home with Family * ADLs Independent * Equipment Glucometer Rolling Walker * List name and contact numbers for known caregivers / representatives who currently or will assist patient after discharge: DIPAK () [phone] * Verbal permission to speak to the caregivers and representatives has been obtained from the patient. Yes * Community resources currently utilized None * Additional services required to return to the preadmission environment? No * Can the patient safely return to the preadmission environment? Yes * Has this patient been hospitalized within the prior 30 days at any hospital? No Coverage Notice Reviewer: [email or web address] Mariel Jackson Notice Issued Date-Time: 07/10/2018 13:30 Notice Type: IM Discharge Notice Notice Delivered To: Patient Relationship to Patient: Cessation Systems Outreach Specialist Name: Delivery Method: HAND - Hand Delivered Valeria Days: Prior Verbal Notification: Recipient Understood Notice: Yes Recipient Signature: Yes Med Rec Note Co-signed by Attending: Coverage Notice Comment: Last DP export: 07/07/18 3:02 p Patient Name: KARYN PUENTES Page 20269 at 1346 All edits/amendments must be made on the electronic document DICTATION DATE: 07/10/18 1346 YARD ASSOCIATE: YORDAN 07/10/18 1346 RPT#: [id number] DC DATE: STATUS: ADM IN [facility] [address] [place] [address] END OF REPORT
--- NOTE | ~2018-07-06 | MORECARE ---
CASE MANAGEMENT DISCHARGE SUMMARY PATIENT: KARYN PUENTES UNIT: [id number] ADM DATE: 07/06/18 AGE: 72 : 43 SEX: F ROOM/BED: D.2220 AUTHOR: VAMSHI FELTON PHYSICIAN: REFERRING PHYSICIAN: GEORGIE MICHELLE MD DATE OF SERVICE: 07/07/18 Discharge Plan Patient Name: KARYN PUENTES [facility] [facility] 1945 Planned Disposition: Home Anticipated Discharge Date: Discharge Date: Expected LOS: Initial Reviewer: [email or web address] Initial Review Date: 07/07/2018 Generated: 07/07/18 4:53 pm DCPIA - Discharge Planning Initial Assessment Updated by [email or web address]: Amarilys Jackson on 07/07/18 3:53 pm * Is the patient Alert and Oriented? Yes * How many steps to enter\exit or inside your home? * PCP [facility] * Pharm[facility] [address] * Preadmission Environment Home with Family * ADLs Independent * Equipment Glucometer Rolling Walker * List name and contact numbers for known caregivers / representatives who currently or will assist patient after discharge: DIPAK () [phone] * Verbal permission to speak to the caregivers and representatives has been obtained from the patient. Yes * Community resources currently utilized None * Additional services required to return to the preadmission environment? No * Can the patient safely return to the preadmission environment? Yes * Has this patient been hospitalized within the prior 30 days at any hospital? No Patient Name: KARYN PUENTES Page 73421 at 1554 All edits/amendments must be made on the electronic document DICTATION DATE: 07/07/18 155 WOOL AND PELT GRADER: YORDAN 07/07/18 155 RPT#: [id number] DC DATE: STATUS: ADM IN [facility] [address] [place] [address] END OF REPORT
--- NOTE | ~2018-07-06 | MORECARE ---
CASE MANAGEMENT DISCHARGE SUMMARY PATIENT: KARYN PUENTES UNIT: [id number] ADM DATE: 07/07/18 AGE: 72 : 43 SEX: F ROOM/BED: D.2220 AUTHOR: VAMSHI FELTON PHYSICIAN: REFERRING PHYSICIAN: GEORGIE MICHELLE MD DATE OF SERVICE: 07/13/18 Discharge Plan Patient Name: KARYN PUENTES Facility: [facility]:[place] : 1945 Planned Disposition: Home Anticipated Discharge Date: Discharge Date: 07/10/2018 Expected LOS: 0 Initial Reviewer: [email or web address] Initial Review Date: 07/07/2018 Generated: 07/13/18 10:48 am Comments DCP- Discharge Planning Updated by [email or web address]: Amarilys Jackson on 07/10/18 12:[address] Patient Name: KARYN PUENTES Encounter No: [id number] : 1945 Primary Insurance: MEDICARE A & B Anticipated DC Date: Planned Disposition: Home External Planned Provider: : DCP follow-up note: Patient and family in agreement with discharge plan. IMM served and explained. No changes to plan. Case management will follow and assist as needed. Amarilys Jackson DCP- Discharge Planning Updated by [email or web address]: Amarilys Jackson on 07/07/18 2:[address] Patient Name: KARYN PUENTES Admission Status: ER Accout number: [id number] Admission Date: 07-06-2018 : 1945 Admission Diagnosis: Attending: GEORGIE MICHELLE Current LOS: 1 Anticipated DC Date: Planned Disposition: Home Primary Insurance: MEDICARE A & B Discharge Planning Comments: CM met with patient to assess discharge planning needs. Patient stated that she is independent with her care at home and plans to return there at discharge. She stated that her will be the one to take her home. She has a glucometer and a walker at home .She does not use any HH services and does not think she will need it when she is discharged. CM will continue to follow and assist with dc planning. Saw Maker: Amarilys Jackson DCPIA - Discharge Planning Initial Assessment Updated by [email or web address]: Amarilys Jackson on 07/07/18 3:53 pm * Is the patient Alert and Oriented? Yes * How many steps to enter\exit or inside your home? * PCP [facility] * [facility] [address] * Preadmission Environment Home with Family * ADLs Independent * Equipment Glucometer Rolling Walker * List name and contact numbers for known caregivers / representatives who currently or will assist patient after discharge: DIPAK () [phone] * Verbal permission to speak to the caregivers and representatives has been obtained from the patient. Yes * Community resources currently utilized None * Additional services required to return to the preadmission environment? No * Can the patient safely return to the preadmission environment? Yes * Has this patient been hospitalized within the prior 30 days at any hospital? No Coverage Notice Reviewer: [email or web address] - Amarilys Jackson Notice Issued Date-Time: 07/10/2018 13:30 Notice Type: IM Discharge Notice Notice Delivered To: Patient Relationship to Patient: Construction Manager Name: Delivery Method: HAND - Hand Delivered Valeria Days: Prior Verbal Notification: Recipient Understood Notice: Yes Recipient Signature: Yes Med Rec Note Co-signed by Attending: Coverage Notice Comment: Last DP export: 07/10/18 12:46 p Patient Name: KARYN PUENTES Page 31037 at 0949 All edits/amendments must be made on the electronic document DICTATION DATE: 07/13/18947 PROJECT TECHNICIAN: YORDAN 07/13/18947 RPT#: [id number] DC DATE:07/10/18 STATUS: DIS IN [facility] [address] [place] [address] END OF REPORT
[2018-07-06 20:40] LABS: BASOPHILS 0.2 % (0-2); EOSINOPHILS 1.2 % (0-7); HEMATOCRIT 37.2 % (36.0-48.0); HEMOGLOBIN 12.8 g/dL (12-16); IMMATURE GRANULOCYTES 0.1 % (0-5); LYMPHOCYTES 36.7 % (15-50); MCH 30.3 pg (26.0-34.0); MCHC 34.4 g/dL (31.0-37.0); MCV 87.9 fL (80.0-100.0); MEAN PLATELET VOLUME 10.7 fL (7.4-10.4); MONOCYTES 6.3 % (2-11); NEUTROPHILS 55.5 % (40-80); PLATELET COUNT 274 10x3/uL (130-400); RBC 4.23 10x6/uL (4.00-5.40); RDW 13.1 % (11.5-14.5); WBC 10.4 10x3/uL (4.8-10.8)
[2018-07-06 21:00] VITALS: BP 151/82
[2018-07-06 21:04] LABS: ALBUMIN 3.3 g/dL (3.4-5.0); ALKALINE PHOSPHATASE 92 U/L (46-116); ALT (SGPT) 37 U/L (10-68); BILIRUBIN - TOTAL 0.45 mg/dL (0.2-1.3); CALC OSMOLALITY 288 mosm/kg (275-300); CALCIUM 9.2 mg/dL (8.5-10.1); CHLORIDE - SERUM 103 mmol/L (98-107); CREATININE - SERUM 1.1 mg/dL (0.6-1.3); POTASSIUM - SERUM 4.4 mmol/L (3.5-5.1); PROTEIN - SERUM 7.1 g/dL (6.4-8.2); SODIUM 138 mmol/L (136-145); UREA NITROGEN 23 mg/dL (7-18); eGFR NON AFRICAN AMERICAN 51 mL/min (90-120)
[2018-07-06 21:08] LABS: LIPASE 139 U/L (73-393); TROPONIN-I < 0.017 ng/mL (0.000-0.060)
[2018-07-06 21:11] LABS: GLUCOSE 254 mg/dL (74-106)
[2018-07-06 22:00] VITALS: BP 148/81
[2018-07-06 23:00] VITALS: BP 142/78
[2018-07-06 23:00] LABS: APPEARANCE CLEAR (CLEAR); COLOR YELLOW (YELLOW); NITRITE NEGATIVE (NEGATIVE)
[2018-07-06 23:01] LABS: BILIRUBIN NEGATIVE (NEGATIVE); GLUCOSE 1000 mg/dL (NEGATIVE); KETONE NEGATIVE (NEGATIVE); PROTEIN TRACE mg/dL (NEGATIVE); UROBILINOGEN NORMAL (NORMAL)
[2018-07-07 00:40] VITALS: BP 143/63
[2018-07-07 08:19] VITALS: BP 167/70
[2018-07-07 10:21] LABS: BASOPHILS 0.1 % (0-2); EOSINOPHILS 0 % (0-7); HEMATOCRIT 40.1 % (36.0-48.0); HEMOGLOBIN 13.8 g/dL (12-16); IMMATURE GRANULOCYTES 0.2 % (0-5); LYMPHOCYTES 12.5 % (15-50); MCH 30.5 pg (26.0-34.0); MCHC 34.4 g/dL (31.0-37.0); MCV 88.5 fL (80.0-100.0); MEAN PLATELET VOLUME 10.7 fL (7.4-10.4); MONOCYTES 3.1 % (2-11); NEUTROPHILS 84.1 % (40-80); PLATELET COUNT 241 10x3/uL (130-400); RBC 4.53 10x6/uL (4.00-5.40); RDW 13.2 % (11.5-14.5)
[2018-07-07 10:22] LABS: WBC 13.7 10x3/uL (4.8-10.8)
[2018-07-07 10:33] LABS: ANION GAP 14.8 mmol/L (8-16); CALCIUM 9.5 mg/dL (8.5-10.1); CARBON DIOXIDE 23.6 mmol/L (21.0-32.0); CREATININE - SERUM 0.9 mg/dL (0.6-1.3); POTASSIUM - SERUM 4.4 mmol/L (3.5-5.1)
[2018-07-07 11:07] VITALS: BP 150/61
[2018-07-07 13:31] VITALS: Ht 168.9 cm; Wt 90.7 kg
[2018-07-07 16:16] VITALS: BP 132/57
[2018-07-07 20:00] VITALS: BP 159/69
[2018-07-08] VITALS: BP 169/69
[2018-07-08 04:00] VITALS: BP 128/68
[2018-07-08 06:11] LABS: BASOPHILS 0 % (0-2); EOSINOPHILS 0.1 % (0-7); HEMATOCRIT 41.7 % (36.0-48.0); HEMOGLOBIN 14.3 g/dL (12-16); IMMATURE GRANULOCYTES 0.3 % (0-5); LYMPHOCYTES 12.2 % (15-50); MCH 30.6 pg (26.0-34.0); MCHC 34.3 g/dL (31.0-37.0); MCV 89.3 fL (80.0-100.0); MEAN PLATELET VOLUME 11.5 fL (7.4-10.4); MONOCYTES 3.6 % (2-11); NEUTROPHILS 83.8 % (40-80); PLATELET COUNT 278 10x3/uL (130-400); RBC 4.67 10x6/uL (4.00-5.40); RDW 13.4 % (11.5-14.5)
[2018-07-08 06:23] LABS: ANION GAP 15.4 mmol/L (8-16); CALCIUM 9.8 mg/dL (8.5-10.1); CARBON DIOXIDE 24.4 mmol/L (21.0-32.0); CREATININE - SERUM 0.9 mg/dL (0.6-1.3); POTASSIUM - SERUM 3.8 mmol/L (3.5-5.1)
[2018-07-08 09:57] VITALS: BP 153/69
[2018-07-08 12:48] VITALS: BP 153/64
[2018-07-08 15:32] LABS: APPEARANCE CLEAR (CLEAR); BILIRUBIN NEGATIVE (NEGATIVE); COLOR YELLOW (YELLOW); GLUCOSE 500 mg/dL (NEGATIVE); KETONE SMALL mg/dL (NEGATIVE); NITRITE NEGATIVE (NEGATIVE); PROTEIN TRACE mg/dL (NEGATIVE); SPECIFIC GRAVITY 1.025 (1.005-1.020); UROBILINOGEN NORMAL (NORMAL)
[2018-07-08 17:08] VITALS: BP 162/78
[2018-07-08 21:32] VITALS: BP 179/75
[2018-07-09 05:10] LABS: CALCIUM 8.8 mg/dL (8.5-10.1); CARBON DIOXIDE 26.5 mmol/L (21.0-32.0); POTASSIUM - SERUM 3.5 mmol/L (3.5-5.1)
[2018-07-09 05:18] LABS: BASOPHILS 0.1 % (0-2); EOSINOPHILS 0 % (0-7); HEMATOCRIT 38.5 % (36.0-48.0); HEMOGLOBIN 13.4 g/dL (12-16); IMMATURE GRANULOCYTES 0.2 % (0-5); LYMPHOCYTES 16.9 % (15-50); MCH 30.9 pg (26.0-34.0); MCHC 34.8 g/dL (31.0-37.0); MCV 88.7 fL (80.0-100.0); NEUTROPHILS 75.8 % (40-80); PLATELET COUNT 254 10x3/uL (130-400); RBC 4.34 10x6/uL (4.00-5.40); RDW 13.3 % (11.5-14.5); WBC 14.6 10x3/uL (4.8-10.8)
[2018-07-09 05:19] VITALS: BP 183/69
[2018-07-09 09:05] VITALS: BP 162/60
[2018-07-09 20:00] VITALS: BP 168/61
[2018-07-10 04:00] VITALS: BP 161/55
[2018-07-10 06:39] LABS: BASOPHILS 0.1 % (0-2); EOSINOPHILS 0.1 % (0-7); HEMATOCRIT 36.5 % (36.0-48.0); HEMOGLOBIN 12.6 g/dL (12-16); IMMATURE GRANULOCYTES 0.2 % (0-5); LYMPHOCYTES 17.3 % (15-50); MCH 30.6 pg (26.0-34.0); MCHC 34.5 g/dL (31.0-37.0); MCV 88.6 fL (80.0-100.0); MEAN PLATELET VOLUME 10.6 fL (7.4-10.4); NEUTROPHILS 75.3 % (40-80); PLATELET COUNT 222 10x3/uL (130-400); RBC 4.12 10x6/uL (4.00-5.40); RDW 13.2 % (11.5-14.5); WBC 13.4 10x3/uL (4.8-10.8)
[2018-07-10 07:09] LABS: ANION GAP 12.7 mmol/L (8-16); CALCIUM 8.5 mg/dL (8.5-10.1); CARBON DIOXIDE 24.8 mmol/L (21.0-32.0); CREATININE - SERUM 0.8 mg/dL (0.6-1.3); POTASSIUM - SERUM 3.5 mmol/L (3.5-5.1)
[2018-07-10 08:18] VITALS: BP 169/65
[2018-07-10] MEDS ORDERED: MIRALAX17 GM PO (12:38)
[2018-07-10 12:40] VITALS: BP 158/71
== END 2018-07-10 15:39 | disposition home or self-care (01) | DRG 392 ==
LOC: D.ER 20:12 → D.MS 23:21 → OBSVTIME 23:21 → D.MS 07-07 15:50
PROVIDERS: Family Medicine; Internal Medicine Nephrology
DX: K59.00 Constipation, unspecified (principal); K56.7 Ileus, unspecified; E11.40 Type 2 diabetes mellitus with diabetic neuropathy, unspecified; Z79.84 Long term (current) use of oral hypoglycemic drugs; I10 Essential (primary) hypertension; H81.09 Meniere's disease, unspecified ear; G89.29 Other chronic pain; M54.9 Dorsalgia, unspecified; Z86.73 Personal history of transient ischemic attack (TIA), and cerebral infarction without residual deficits

== ENCOUNTER 2018-11-17 19:00 | Outpatient (CLI) | payer MEDICARE, OTHER ==
[2018-07-07 13:31] VITALS: BMI 31.8
== END 2018-11-17 23:59 | disposition home or self-care (01) ==
LOC: D.MAMMO 19:00
PROVIDERS: ATTEND Family Medicine Adult Medicine
DX: Z12.31 Encounter for screening mammogram for malignant neoplasm of breast (principal)

== ENCOUNTER → 2018-12-31 16:32 | Outpatient (CLI) | payer MEDICARE, OTHER ==
[2018-07-07 13:31] VITALS: BMI 31.8
== END | disposition home or self-care (01) ==
LOC: D.MAMMO 12-22 09:30 → D.US 12-22 10:30 → D.MAMMO 13:30
PROVIDERS: ATTEND Family Medicine Adult Medicine
DX: R92.8 Other abnormal and inconclusive findings on diagnostic imaging of breast (principal)